=== PATIENT | female | born 1955 | race Caucasian/White ===

== ENCOUNTER 2018-07-13 09:53 | Emergency (ER) | payer BC ==
[2018-07-13 10:07] VITALS: BMI 24.7
[2018-07-13] MEDS ORDERED: SODIUM CHLORIDE 0.9% 1000 ML INFUS.BAG IV ONE ×2 (10:18→12:36)
[2018-07-13] MEDS ORDERED: ONDANSETRON 4 MG/2 ML VIAL IVPUSH ONE (10:18)
[2018-07-13] MEDS ORDERED: ACETAMINOPHEN 1000 MG/100 ML VIAL (NON FORMULARY) IVPB ONE (10:18)
[2018-07-13] MEDS ORDERED: ONDANSETRON 4 MG/2 ML VIAL ONE (10:27)
[2018-07-13] MEDS ORDERED: ACETAMINOPHEN INJECTION 100 ML IVPB ONE (10:27)
[2018-07-13] MEDS ORDERED: FAMOTIDINE 20 MG/50 ML IVPB 20 MG/50 ML MG IVPB ONE ×2 (10:27→10:30)
[2018-07-13 10:33] LABS: HEMOGLOBIN 16.3 GM/dl (10.7-15.3); LYMPH % 6.6 % (8-40)
[2018-07-13 10:36] LABS: ALBUMIN 4.3 g/dl (3.4-5.0); ALK PHOS 55 U/L (45-117); ANION GAP 13 MMOL/L (8-16); BILIRUBIN,TOTAL 1.1 mg/dl (0.2-1); BLOOD UREA NITROGEN 23 mg/dl (7-18); CALCIUM 9.4 mg/dl (8.5-10); CHLORIDE 103 mmol/L (98-107); CO2 22 mmol/L (21-32); GLUCOSE,RANDOM 111 mg/dl (74-106); POTASSIUM 4.2 mmol/L (3.5-5.1); SGOT/AST 29 U/L (15-37); SGPT/ALT 20 U/L (13-61); SODIUM 138 mmol/L (136-145); TOT PROT 7.3 g/dl (6.4-8.2)
[2018-07-13 10:39] LABS: BASO % 0.2 % (0-2.0); EOS % 0.9 % (0-4.5); HEMATOCRIT 48.2 % (32.4-45.2); MCHC 33.9 g/dl (32.0-36.0); MEAN CELL VOLUME 91.5 fl (80-96); MEAN PLT VOLUME 7.4 fl (7.5-11.1); MONO % 6.1 % (3.8-10.2); NEUT % 86.2 % (42.8-82.8); PLATELET COUNT 315 K/MM3 (134-434); RBC 5.27 M/mm3 (3.60-5.2); RDW 12.8 % (11.6-15.6); WHITE BLOOD COUNT 11.3 K/mm3 (4.0-10.8)
--- NOTE | 2018-07-13 10:43 | PDOC ---
Attending Attestation - Resident Resident Name: Antonino Wilson - ED Attending Attestation I have performed the following: I have examined & evaluated the patient, The case was reviewed & discussed with the resident, I agree w/resident's findings & plan, Exceptions are as noted - HPI HPI: 07/13/18 10:43 62yo female with hx of adrenal hyperplasia on prednisone presents for eval of n/ v/d. Daughter also has the same complaints. Symptoms started at midnight. States she ate latvian food last night. States nbnb vomitus and nonbloody watery diarrhea. Pt denies f/c. States she did take her prednisone this AM and was able to keep it down. States crampy abd pain. No dysuria. No cp/sob. Pt appears dehydrated upon arrival. Pmhx: adrenal hyperplasia Allergies: nkda Meds: prednisone - Physicial Exam PE: 07/13/18 10:51 Gen: awake, appears dehydrated and worn out HEENT: eomi, dry cracked tongue heart:+S1s2 tachy lungs: cta b/l abd: soft, mild diffuse ttp, no rebound or guarding, +bs ext: no c/c/e - Medical Decision Making 07/13/18 10:43 I, Dr. Angeles Dey, DO, attest that this document has been prepared under my direction and personally reviewed by me in its entirety. I further attest, that it accurately reflects all work, treatment, procedures and medical decision -making performed by me. 07/13/18 11:09 a/p: 62yo female with acute onset of n/v/d -no blood in vomit or diarrhea -low suspicion for adrenal insuff given normal bp and pt able to take her prednisone this am -suspect viral syndrome - daughter with similar complaints - both started last night -pt recently traveled up from [place] on thursday -no recent abx -abd is soft, no focal ttp -will send labs, hydrate, zofran, pepcid -will po challenge after labs result and if pt feeling better 07/13/18 11:13 re-eval: pt feeling better, nausea controlled labs pending 07/13/18 12:33 re-eval: pt feeling much better awake, smiling, abd is soft nausea controlled given po challenge 07/13/18 12:39 pt states she does have chronically low bp and runs in the 90s normally 07/13/18 13:17 urine clear 07/13/18 13:46 pt has tolerated po 07/13/18 14:27 pt ambulatory in the ED with a steady gait pt feeling much better tolerating po intake stable for dc to home states bp always 90 systolic Heart Score/ECG Review - ECG Intrepretation Comment:: 07/13/18 11:12 sinus tach at 106, nl axis, nl interval, no acute st/t wave findings
[2018-07-13] MEDS ORDERED: LACTATED RINGERS SOLUTION 1000 ML INFUS.BAG IV ONE (10:53)
[2018-07-13 12:20] LABS: LIPASE 128 U/L (73-393)
--- NOTE | 2018-07-13 12:47 | PDOC ---
History of Present Illness - General Chief Complaint: Vomiting/Diarrhea Stated Complaint: VOMITING, DIARRHEA Time Seen by Provider: 07/13/18 09:55 - History of Present Illness Initial Comments: 07/13/18 12:42 62 yo F with h/o adrenal hyperplasia who p/w N/V, and diarrhea. Patient reports acute epsiode of NBNB emesis x 10 beginnning this AM ( 0100), and assicotiatde loose watery, non bloody stools x 10 with no identifiable triggers or allevaitors. Denies abdominal pain. States that patient daughter has similiar presentation, although they ate different meals yesterday evening and day. Unable to tolerate oral intake with fluids and solids. Denies recent travels. Patient reports taking her daily dose of Prednsione this morning. Patient denies MILLER, vision change, palpitations, cough, wheezing, orthopena, PND , leg swelling/pain, F,C, CP, SOB, urinary complaints, hematuria, BPR, abdominal pain, constipation, lightheadedness, weakness, sensory changes. PMHx: as noted above Surgical: Denies h/o abdominal surgery ROS: as noted Allergies: NKDA Past History - Past Medical History Allergies/Adverse Reactions: Allergies Allergy/AdvReac Type Severity Reaction Status Date / Time No Known Allergies Allergy Verified 07/13/18 10:00 Home Medications: Ambulatory Orders Famotidine [Pepcid -] 20 mg PO DAILY #20 tablet 07/13/18 Ondansetron [Ondansetron Odt] 8 mg PO PRN PRN #7 tab.rapdis MDD 1 tab 07/13/18 Prednisone 5 mg PO DAILY 07/13/18 COPD: No Other medical history: ADRENAL HYPERPLASIA - Suicide/Smoking/Psychosocial Hx Smoking History: Never smoked Have you smoked in the past 12 months: No Information on smoking cessation initiated: No Hx Alcohol Use: No Review of Systems - Review of Systems Comments:: 07/13/18 12:45 GENERAL/CONSTITUTIONAL: No fever or chills. No weakness. HEAD, EYES, EARS, NOSE AND THROAT: No change in vision. No ear pain or discharge. No sore throat. CARDIOVASCULAR: No chest pain or shortness of breath RESPIRATORY: No cough, wheezing, or hemoptysis. GASTROINTESTINAL: + nausea, vomiting, diarrhea. No constipation. GENITOURINARY: No dysuria, frequency, or change in urination. MUSCULOSKELETAL: No joint or muscle swelling or pain. No neck or back pain. SKIN: No rash NEUROLOGIC: No headache, vertigo, loss of consciousness, or change in strength/ sensation. ENDOCRINE: No increased thirst. No abnormal weight change HEMATOLOGIC/LYMPHATIC: No anemia, easy bleeding, or history of blood clots. ALLERGIC/IMMUNOLOGIC: No hives or skin allergy. *Physical Exam - Vital Signs Last Vital Signs Temp Pulse Resp BP Pulse Ox 100.1 F H 101 H 18 90/51 L 95 07/13/18 12:35 07/13/18 12:35 07/13/18 09:53 07/13/18 12:35 07/13/18 12:35 - Physical Exam Comments: 07/13/18 12:45 GENERAL: Awake, alert, and fully oriented, in no acute distress HEAD: No signs of trauma, normocephalic, atraumatic EYES: PERRLA, EOMI, sclera anicteric, conjunctiva clear ENT: + Dry mucous membranes. Hearing grossly normal, nares patent, oropharynx clear without exudates. NECK: Normal ROM, supple, no lymphadenopathy, JVD, or masses LUNGS: No distress, speaks full sentences, clear to auscultation bilaterally HEART: Regular rate and rhythm, normal S1 and S2, no murmurs, rubs or gallops, peripheral pulses normal and equal bilaterally. ABDOMEN: Soft, nontender, normoactive bowel sounds. No guarding, no rebound. No masses EXTREMITIES : Normal inspection, Normal range of motion, no edema. No clubbing or cyanosis. NEUROLOGICAL: Cranial nerves II through XII grossly intact. Normal speech, normal gait, no focal sensorimotor deficits SKIN: Warm, Dry, normal turgor, no rashes or lesions noted Moderate Sedation - Procedure Monitoring Vital Signs: Procedure Monitoring Vital Signs Temperature 100.1 F H 07/13/18 12:35 Pulse Rate 101 H 07/13/18 12:35 Respiratory Rate 18 07/13/18 09:53 Blood Pressure 90/51 L 07/13/18 12:35 O2 Sat by Pulse Oximetry (%) 95 07/13/18 12:35 ED Treatment Course - LABORATORY CBC & Chemistry Diagram: 07/13/18 10:11 07/13/18 10:11 - ADDITIONAL ORDERS Additional order review: Laboratory Results 07/13/18 10:11 Sodium 138 Potassium 4.2 Chloride 103 Carbon Dioxide 22 Anion Gap 13 BUN 23 H Creatinine 1.0 Creat Clearance w eGFR 55.82 Random Glucose 111 H Calcium 9.4 Magnesium 2.0 Total Bilirubin 1.1 H AST 29 ALT 20 Alkaline Phosphatase 55 Total Protein 7.3 Albumin 4.3 Lipase 128 07/13/18 10:11 RBC 5.27 H MCV 91.5 MCHC 33.9 RDW 12.8 MPV 7.4 L Neutrophils % 86.2 H Lymphocytes % 6.6 L Monocytes % 6.1 Eosinophils % 0.9 Basophils % 0.2 - Medications Given in the ED: ED Medications Discontinued Medications Generic Name Dose Route Start Last Admin Trade Name Freq PRN Reason Stop Dose Admin Acetaminophen 1,000 mg 07/13/18 10:18 07/13/18 10:30 Ofirmev Injection - IVPB 07/13/18 10:19 1,000 mg ONCE ONE Administration Famotidine/Sodium Chloride 20 mg in 50 mls @ 100 mls/hr 07/13/18 10:30 10:53 Pepcid 20 Mg Premixed Ivpb - IVPB 07/13/18 10:59 100 mls/hr ONCE ONE Administration Lactated Ringer's 1,000 ml 07/13/18 10:53 07/13/18 11:30 Lactated Ringers Solution IV 07/13/18 10:54 1,000 ml ONCE ONE Administration Ondansetron HCl 4 mg 07/13/18 10:18 07/13/18 10:25 Zofran Injection IVPUSH 07/13/18 10:19 4 mg ONCE ONE Administration Sodium Chloride 1,000 ml 07/13/18 10:18 07/13/18 10:10 Normal Saline - IV 07/13/18 10:19 1,000 ml ONCE ONE Administration Medical Decision Making - Medical Decision Making 07/13/18 12:45 62 yo F with h/o adrenal hyperplasia who p/w N/V, and diarrhea x 12 hours. HR 116, vitals otherwise wnl, AF, A&Ox3. Physical exam notable for dry mucosa, and unremarkable abdominal exam. Denies palpitations, cough, wheezing, orthopena, PND, leg swelling/pain, F,C, CP, SOB, urinary complaints, hematuria, BPR, abdominal pain, constipation, lightheadedness, weakness, sensory changes. Patient with clinical s/s dehydration. Presentation likely 2/2 acute gastroenteritis or foodbourne illness. Low suspicion pyelonephritis, pancreatitis, colitis. Will assess for cardiac dysarrythmias, hypoglycemia, electrolyte abnml, metabolic and toxic derangements, acid-base disturbances, infection. ED Course: NS 2 L CBC,CMP: Unremarkable WBC: 11.3 Lipase: Neg Patient able to tolerate PO intake following Zofran 8 mg 07/13/18 13:52 EKG:Sinus tachycardia 106, nml interval duration and axis. Absent TOMER, STD. 07/13/18 14:17 Zofran, and pepcid sent to pharmacy stable for d./c with return precautions *DC/Admit/Observation/Transfer Diagnosis at time of Disposition: Nausea and vomiting Qualifiers: Vomiting type: unspecified Vomiting Intractability: non-intractable Qualified Code(s): R11.2 - Nausea with vomiting, unspecified - Discharge Dispostion Condition at time of disposition: Stable Decision to Admit order: No - Prescriptions Prescriptions: Famotidine [Pepcid -] 20 mg PO DAILY #20 tablet Ondansetron [Ondansetron Odt] 8 mg PO PRN PRN #7 tab.rapdis MDD 1 tab PRN Reason: Nausea - Referrals - Patient Instructions Printed Discharge Instructions: DI for Viral Gastroenteritis -- Adult Additional Instructions: Please return to the emergency department with any new or worsening symptoms or concerns. Please follow up with your primary care physician within 72 hours. - Post Discharge Activity - Attestations Physician Attestion: 07/13/18 12:50 I attest to the information provided in this note.
[2018-07-13 13:12] LABS: PH,URINE 6.5 (4.5-8); URINE APPEARANCE Clear; URINE BILIRUBIN Negative (NEGATIVE); URINE COLOR Yellow; URINE GLUCOSE (UA) Negative (NEGATIVE); URINE KETONE Negative (NEGATIVE); URINE LEUK ESTERASE Negative (NEGATIVE); URINE NITRITE Negative (NEGATIVE); URINE PROTEIN Negative (NEGATIVE); URINE UROBILINOGEN 0.2 (0.2-1.0)
[2018-07-13 14:07] VITALS: BP 90/49; PULSE 88; TEMP 99.9
[2018-07-13] MEDS ORDERED: KETOROLAC TROMETHAMINE 15 MG/ML VIAL IVPUSH ONE (14:22)
[2018-07-13] MEDS ORDERED: IBUPROFEN 600 MG TABLET (FP) PO ONE ×2 (14:23)
--- NOTE | 2018-07-14 10:10 | EKG ---
Test Reason : Blood Pressure : / mmHG Vent. Rate : 106 BPM Atrial Rate : 106 BPM P-R Int : 122 ms QRS Dur : 080 ms QT Int : 328 ms P-R-T Axes : 025 051 031 degrees QTc Int : 435 ms SINUS TACHYCARDIA OTHERWISE NORMAL ECG NO PREVIOUS ECGS AVAILABLE Confirmed by JONATHAN MELGOZA, DIANNA ([id number]) on 07/14/2018 10:10:36 AM Referred By: PETTY GUTIÉRREZ Confirmed By:DIANNA CASTILLO MD
== END 2018-07-13 14:35 | disposition home or self-care (01) ==
LOC: FER 09:53
PROC: 3E0337Z Introduction of Electrolytic and Water Balance Substance into Peripheral Vein, Percutaneous Approach (ICD-10-PCS; principal; 2018-07-13)
PROC: 3E0337Z Introduction of Electrolytic and Water Balance Substance into Peripheral Vein, Percutaneous Approach (ICD-10-PCS; 2018-07-13)
PROC: 3E033NZ Introduction of Analgesics, Hypnotics, Sedatives into Peripheral Vein, Percutaneous Approach (ICD-10-PCS; 2018-07-13)
PROC: 3E033GC Introduction of Other Therapeutic Substance into Peripheral Vein, Percutaneous Approach (ICD-10-PCS; 2018-07-13)
DX: R11.2 Nausea with vomiting, unspecified (principal); E27.8 Other specified disorders of adrenal gland
CPT/HCPCS: 36415; 80053; 81003; 83690; 83735; 85025; 93005; 99285-25; J0131; J7030